=== PATIENT | female | born 1985 | race Caucasian/White ===

== ENCOUNTER 2019-06-02 22:25 | Inpatient (IN) | payer OTHER ==
[~2019-06-02] VITALS: Ht 152.4 cm; Wt 61.2 kg
[2019-06-04] MEDS ORDERED: TRI-LO-SPRINTE1 EACH PO (08:17)
[2019-06-06] MEDS ORDERED: FLAGYL500MG PO (17:10)
[2019-06-06] MEDS ORDERED: CIPRO500 MG PO (17:10)
== END 2019-06-06 18:10 | disposition home or self-care (01) | DRG 391 ==
LOC: EDBD 22:25 → ER 22:25 → MEDJ 06-03 17:30
PROVIDERS: ADMIT Internal Medicine
PROC: BW21ZZZ Computerized Tomography (CT Scan) of Abdomen and Pelvis (ICD-10-PCS; principal; 2019-06-03)
PROC: BU4CZZZ Ultrasonography of Uterus and Ovaries (ICD-10-PCS; 2019-06-03)
DX: K52.89 Other specified noninfective gastroenteritis and colitis (principal); A41.9 Sepsis, unspecified organism; K56.699 Other intestinal obstruction unspecified as to partial versus complete obstruction; E86.0 Dehydration; N83.291 Other ovarian cyst, right side; N83.292 Other ovarian cyst, left side